=== PATIENT | male | born 1955 | race Caucasian/White ===

== ENCOUNTER 2024-05-22 11:56 | Emergency (ER) | payer MEDICARE ==
[~2024-05-22] VITALS: Ht 170.2 cm; Wt 77.1 kg
[~2024-05-22 11:56] MED LIST: FINA5; Hytrin1 MG; PROSTATE MED
[2024-05-22 12:42] VITALS: BP 168/140
[2024-05-22] MEDS ORDERED: Lidocaine 4% 1 Patch TOP ONE (13:40)
[2024-05-22] MEDS ORDERED: Ketorolac Tromethamine 30mg Vial IM ONE (13:40)
[2024-05-22] MEDS ORDERED: IBUP800 PO (13:46)
[2024-05-22] MEDS ORDERED: LIDO700A20 TOP (13:46)
[2024-05-22] MEDS ORDERED: HYDR1TAB94 PO (14:06)
== END 2024-05-22 14:26 | disposition home or self-care (01) ==
LOC: ER 11:56
DX: M54.16 Radiculopathy, lumbar region (principal); Z79.899 Other long term (current) drug therapy
CPT/HCPCS: 96372; 99283-25; A9270; J1885

== ENCOUNTER 2025-07-17 08:37 | Emergency (ER) | payer MEDICARE ==
[~2025-07-17] VITALS: Ht 172.7 cm; Wt 77.1 kg
[~2025-07-17 08:37] MED LIST changes: +HYDR1TAB94 PO; +IBUP800 PO; +LIDO700A20 TOP
[2025-07-17 11:19] VITALS: BP 140/100
[2025-07-17] MEDS ORDERED: Ketorolac Tromethamine 30mg Vial IM ONE (11:30)
[2025-07-17] MEDS ORDERED: Lidocaine 4% 1 Patch TOP ONE (11:30)
== END 2025-07-17 13:21 | disposition home or self-care (01) ==
LOC: ER 08:37
DX: M54.32 Sciatica, left side (principal); Z79.899 Other long term (current) drug therapy
CPT/HCPCS: A9270; J1885

== ENCOUNTER 2025-08-01 11:55 | Emergency (ER) | payer MEDICARE ==
[~2025-08-01] VITALS: Ht 177.8 cm; Wt 77.1 kg
[2025-08-01 12:44] VITALS: BP 156/104
[2025-08-01 13:08] LABS: Source, Urine Clean Catch
[2025-08-01 13:47] LABS: Bilirubin, Urine Neg (Neg); Color, Urine Yellow (P-Yellow); Glucose Qualitative, Urine Neg (Neg); Ketones, Urine 3+ (Neg); Leukocyte Esterase, Urine Neg (Neg); Protein, Urine 2+ (Neg); Specific Gravity, Urine 1.020 (1.003-1.022); Urobilinogen, Urine NORM (Normal)
[2025-08-01] MEDS ORDERED: Lidocaine 4% 1 Patch TOP ONE (14:25)
[2025-08-01] MEDS ORDERED: Ketorolac Tromethamine 30mg Vial IV ONE (14:25)
[2025-08-01] MEDS ORDERED: MOBIC15 MG PO (14:33)
[2025-08-01] MEDS ORDERED: PRED20 PO (14:33)
[2025-08-01 14:45] LABS: Red Blood Cells, Urine 0-2 /hpf (0-2); White Blood Cells, Urine 0-2 /hpf (0-5)
== END 2025-08-01 14:50 | disposition home or self-care (01) ==
LOC: ER 11:55
PROVIDERS: Emergency Medicine
DX: M54.17 Radiculopathy, lumbosacral region (principal); Z79.899 Other long term (current) drug therapy
CPT/HCPCS: 81001; 96372; 99283-25; A9270; J1885; J7512